=== PATIENT | female | born 1970 | race African-American/Black ===

== ENCOUNTER 2017-11-06 18:47 | Emergency (ER) | payer BC ==
[~2017-11-06] VITALS: Ht 154.9 cm; Wt 59.0 kg
[2017-11-06] MEDS ORDERED: IRON PO (18:57)
[2017-11-06] MEDS: IBUPROFEN 800 MG TABLET PO ONE (19:29)
[2017-11-06 19:39] LABS: *BILIRUBIN,URIN NEGATIVE (NEGATIVE); *BLOOD, URINE 2+ (NEGATIVE); *COLOR,URINE YELLOW (YELLOW); *KETONES,URINE NEGATIVE (NEGATIVE); *PROTEIN,URINE NEGATIVE (NEGATIVE); *UROBILINOGEN,URINE 0.2 E.U./dl (NORMAL); LEUKOCYTE ESTERASE ,URINE NEGATIVE (NEGATIVE); NITRITE, URINE NEGATIVE (NEGATIVE); UGLUCOSE NEGATIVE (NEGATIVE)
[2017-11-06] MEDS ORDERED: IBUPROFEN 800 MG TABLET ONE (19:44)
[2017-11-06 19:46] LABS: *URINE HCG, QUAL NEGATIVE (NEGATIVE)
[2017-11-06 19:52] LABS: *CLARITY,URINE SLIGHTLY HAZY (CLEAR)
[2017-11-06 19:54] LABS: BACTERIA,URINE FEW /HPF (NONE SEEN); MUCUS,URINE FEW /LPF (0-FEW); SQUAMOUS EPITHELIAL CELL,UR MODERATE /HPF (NONE SEEN); WBC,URINE 0-3 /HPF (0-3)
--- NOTE | 2017-11-06 21:11 | NUR ---
Patient discharged to home in stable conditon. Written and verbal after care instructions given. Patient verbalizes understanding of instructions.
== END 2017-11-06 21:11 | disposition home or self-care (01) ==
LOC: ER 18:48
DX: S16.1XXA Strain of muscle, fascia and tendon at neck level, initial encounter (principal); S39.012A Strain of muscle, fascia and tendon of lower back, initial encounter; R31.9 Hematuria, unspecified; V43.52XA Car driver injured in collision with other type car in traffic accident, initial encounter; Y92.410 Unspecified street and highway as the place of occurrence of the external cause; Y93.89 Activity, other specified; Y99.8 Other external cause status
CPT/HCPCS: 72125; 72131; 84703; A4663